=== PATIENT | female | born 1960 | race Two or more races ===

== ENCOUNTER 2016-08-18 21:11 | Emergency (ER) | payer MEDICAID, OTHER ==
[~2016-08-18] VITALS: Ht 172.7 cm; Wt 81.6 kg
[2016-08-18 21:53] VITALS: BP 160/90
== END 2016-08-19 01:30 | disposition left against medical advice (07) ==
LOC: EDBD 21:11 → ER 21:21
DX: R07.9 Chest pain, unspecified (principal); Z53.21 Procedure and treatment not carried out due to patient leaving prior to being seen by health care provider

== ENCOUNTER 2016-10-16 01:47 | Emergency (ER) | payer MEDICAID ==
[~2016-10-16] VITALS: Ht 149.9 cm; Wt 136.1 kg
[2016-10-16 02:34] LABS: Basophils # (auto) 0 uL; Eosinophils # (auto) 0 uL; Hematocrit 48.9 % (36.0-46.0); Hemoglobin 16.1 g/dL (12.2-16.2); Lymphocytes # (auto) 1.9 uL; Mean Corpuscular Hemoglobin 29.4 pg (28.0-32.0); Mean Corpuscular Hgb Conc. 32.9 g/dL (32.0-36.0); Mean Corpuscular Volume 89.1 fL (80.0-100.0); Mean Platelet Volume 8.7 fL (7.4-10.4); Monocytes # (auto) 0.2 uL; Monocytes % (auto) 0.9 % (0.0-12.0); Neutrophils # (auto) 16.6 uL; Neutrophils % (auto) 89.1 % (37.0-80.0); Platelet Count (auto) 370 10^3/uL (140-450); Red Cell Distribution Width 13.8 % (11.6-16.0); White Blood Cell 18.7 10^3/uL (4.4-10.8)
[2016-10-16] MEDS ORDERED: EPINEPHrine HCL 1 MG/1 ML AMP SC ONE (02:45)
[2016-10-16] MEDS ORDERED: diphenhdrAMINE HCL 50 MG/1 ML VL IV ONE (02:45)
[2016-10-16] MEDS ORDERED: SODIUM CHLORIDE 0.9% 1,000 ML IV ONE (02:45)
[2016-10-16] MEDS ORDERED: methylPREDNISolone SOD SUCC 125 MG/2 ML VL IV ONE (02:45)
[2016-10-16 03:14] LABS: Albumin 3.5 g/dL (3.4-5.0); BUN/Creatinine Ratio 21.2; Bilirubin, Total 0.4 mg/dL (0.2-1.0); Calcium 9.6 mg/dL (8.5-10.1); Potassium 3.7 mmol/L (3.5-5.1); Total Protein 6.5 g/dL (6.4-8.2)
[2016-10-16 04:57] VITALS: BP 152/114
== END 2016-10-16 06:11 | disposition home or self-care (01) ==
LOC: ER 01:47 → EDBD 01:47 → ER 06:11
DX: T78.3XXA Angioneurotic edema, initial encounter (principal); T78.40XA Allergy, unspecified, initial encounter; D72.829 Elevated white blood cell count, unspecified; Y93.89 Activity, other specified; Y99.8 Other external cause status; Y92.89 Other specified places as the place of occurrence of the external cause
CPT/HCPCS: 36415; 80053; 85025; 93005; 96361; 96372; 96374; 96375; 99285; J0171; J1200; J2930; J7030

== ENCOUNTER 2016-10-16 17:57 | Emergency (ER) | payer MEDICAID ==
[~2016-10-16] VITALS: Ht 157.5 cm; Wt 99.8 kg
[2016-10-16 18:25] VITALS: BP 147/95
== END 2016-10-16 22:12 | disposition left against medical advice (07) ==
LOC: ER 18:26
DX: R40.4 Transient alteration of awareness (principal); Z53.21 Procedure and treatment not carried out due to patient leaving prior to being seen by health care provider